=== PATIENT | female | born 1990 | race African-American/Black ===

== ENCOUNTER 2023-09-17 10:28 | Emergency (ER) | payer OTHER ==
[~2023-09-17] VITALS: Ht 162.6 cm; Wt 77.6 kg
== END 2023-09-17 12:25 | disposition home or self-care (01) ==
LOC: ED 10:28
DX: R51.9 Headache, unspecified (principal); R09.81 Nasal congestion; J01.90 Acute sinusitis, unspecified
CPT/HCPCS: 81025; 87502; 87635; 96372; 99283; J1100; J1885; U0003